=== PATIENT | male | born 1980 | race Caucasian/White ===

== ENCOUNTER 2016-07-29 08:28 | Emergency (ER) | payer SELFPAY ==
[2016-07-29 08:45] VITALS: TEMP 98.4; BMI 33.6
--- NOTE | 2016-07-29 09:00 | EDPRACDOC ---
- General Information Chief Complaint: Flu-Like Symptoms Stated Complaint: CONGESTION, SORE THROAT Time Seen by Provider: 07/29/16 08:52 Information Source: Patient Home Medications: Home Medications Amoxicillin/Clavulanate Potas. [Augmentin] 875 mg PO BID #20 tab 07/29/16 Prednisone [Deltasone] 20 mg PO BID #10 tablet 07/29/16 Allergies/Adverse Reactions: Allergies Allergy/AdvReac Type Severity Reaction Status Date / Time No Known Allergies Allergy Verified 07/29/16 08:41 - History of Present Illness Onset: 1 mo HPI: PT C/O LEFT EARACHE SORETHROAT NASAL CNGESTION AND COUGH FOR 1 MO. STATES GETTING WORSE. Current Symptoms: Reports: Cough, Earache, Nasal Symptoms, Sore Throat Shortness of Breath: None Cough: Reports: Non-productive Rhinorrhea: Reports: Clear Ear Symptoms: Reports: Earache, Hearing Difficulty (DECREASED ON LEFT) Fever Severity/Quality: Reports: no fever Oral Intake: Normal Urinary Output: Normal Relevant History of: None Associated Signs & Symptoms:: Reports: Cough, Earache, Nasal Symptoms, Sore Throat ED Past Medical History - History Reviewed Yes Nurses notes reviewed and agree except as marked Travel Outside of [place] in the Last 3 Months?: No - Patient Medical History Psychological History: Reports: Anxiety. Denies: Depression Surgical History: Reports: Appendectomy - Social Medical History Smoking Status: Never smoker ETOH: None Substance Abuse: None Lives With: Other Lives In: Home EDM Review of Systems - Review of Systems Constitutional: No Symptoms Reported. negative: Fever, Chills, Weakness, Fatigue, Loss of Appetite Eyes: No Symptoms Reported. negative: Redness, Blurred Vision, Double Vision, Discharge, Pain, Light Sensitive, Photophobia Ears: Hearing Loss (DECREASED ON LEFT), Pain (LEFT). negative: Drainage, Ear Pulling Throat: Pain, Swelling, Lymphadenopathy, Erythema Nose: No Symptoms Reported. negative: Congestion, Bleeding, Discharge, Injection, Swelling, Deformity, Ecchymosis, Tender, Abrasion, Laceration Mouth: No Symptoms Reported. negative: Pain, Drooling Respiratory: Cough. negative: Barky Cough, Brassy Cough, Hemoptysis, Shortness of Breath, Wheezing Cardiovascular: No Symptoms Reported. negative: Chest Pain, Palpitations, Syncope, Edema, Orthopnea, PND, Skin Mottling, Cyanosis Gastrointestinal: No Symptoms Reported. negative: Pain, Constipation, Nausea, Vomiting, Diarrhea, Melena, Formula Intolerance Genitourinary: No Symptoms Reported. negative: Dysuria, Hematuria, Frequency, Discharge, Bleeding, Testicular Pain, Neurological: No Symptoms Reported. negative: Headache, Dizziness, Seizure, Numbness, Weakness, Speech Difficulty, Gait Difficulty Musculoskeletal: No Symptoms Reported. negative: Neck, Chestwall, Ribs, Back, Shoulder, Arm, Elbow, Forearm, Wrist, Hand, Pelvis, Hip, Femur, Knee, Leg, Ankle , Foot Integumentary: No Symptoms Reported. negative: Itching, Rash, Bruising, Wound Allergic/Immunologic: No Symptoms Reported. negative: Hives, Itching Hematologic: No Symptoms Reported. negative: Lymphadenopathy, Easy Bruising, Easy Bleeding Endocrine: No Symptoms Reported. negative: Weight Gain, Weight Loss Psychiatric: No Symptoms Reported. negative: Anxiety, Depression, Hallucinations, Insomnia, Suicidal - Physical Exam Constitutional: Alert (Awake), No apparent distress Oriented to: Time, Person, Place Last recorded Vital Signs: Last Vital Signs Temp 98.4 F 07/29/16 08:42 Pulse 110 07/29/16 08:42 Resp 18 07/29/16 08:42 BP 170/100 07/29/16 08:42 Pulse Ox 97 07/29/16 08:42 Oxygen Pulse Oxygen Saturation 97 O2 Device Room Air Oxygen Flow Rate Fraction of Inspired Oxygen ( FIO2) - HEENT Head: Normal ( normocephalic) Eye Exam: Normal (PERRL, EOMI, Sclera white) Oropharynx: Red, Tonsillar Hypertrophy Tympanic Membrane: Bulging, Dull, Redness (LEFT) ENT EAC: Normal TMJ: Normal Nose: No Symptoms Reported (septum midline) Neck: Lymphadenopathy (ANTERIOR CERVICAL) - Respiratory/Cardiovascular Respiratory: Normal - CTA (BBS clear to auscultation without adventitious sounds ) Cardiovascular: Normal (RRR without murmur, gallop or rub) - GI Auscultation: Normal (NABS) Palpation: Normal (Soft,No rebound or guarding, non distended) Tenderness: Non tender Amaro's Sign: Negative - Musculoskeletal Back: Normal (Non-Tender) Extremities: Normal (Normal tone, Pulses 2+ No cyanosis or edema, FROM) - Integumentary Skin: Normal, Warm, Dry Lymphatics: Normal (no adenopathy) - Neurologic Memory Impaired: Normal Motor Function: Normal (Normal tone, Pulses 2+ No cyanosis or edema, FROM) Cranial Nerve: Normal (CN II-X11 intact sensation, strength 5/5) Cerebellar: Normal Mood Description: Normal Perception: Normal - Differential Diagnosis Bronchitis, Influenza A B, Otitis Media, Pneumonia, Streptococcal, Sinusitis, URI Decision Time to Discharge: 09:09 - Departure Disposition: Home Condition: Stable Final Diagnosis: Acute bronchitis Left otitis media Qualifiers: Otitis media type: serous Chronicity: acute Recurrence: not specified as recurrent Qualified Code(s): H65.02 - Acute serous otitis media, left ear Instructions: Acute Bronchitis (ED), Otitis Media (ED) Education/Counseling Given To: Patient Education/Counseling Given Regarding: Diagnosis, Treatment, Prognosis, Follow Up Referrals: None,No Provider [Primary Care Provider] - One Week Prescriptions: New Amoxicillin/Clavulanate Potas. [Augmentin] 875 mg PO BID #20 tab Prednisone [Deltasone] 20 mg PO BID #10 tablet
[2016-07-29 09:32] VITALS: BP 152/86; PULSE 98
== END 2016-07-29 09:29 | disposition home or self-care (01) ==
LOC: ED 08:28
DX: J20.9 Acute bronchitis, unspecified (principal); H65.02 Acute serous otitis media, left ear
CPT/HCPCS: 99282